=== PATIENT | male | born 1975 | race Caucasian/White ===

== ENCOUNTER 2025-04-14 08:38 | Day surgery (SDC) | payer BC, OTHER ==
[~2025-04-14 08:38] MED LIST: Clindamycin Phosphate in D5W 900 MG in Premix Bag 1 BAG IV ONE; Sodium Chloride 0.9% 10 ML Syringe FLUSH PRN; Sodium Chloride 0.9% 10 ML Syringe FLUSH SCH
[2025-04-14] MEDS ORDERED: Clindamycin Phosphate in D5W 900 MG in Premix Bag 1 BAG IV ONE (08:45)
[2025-04-14] MEDS: Lactated Ringers 1,000 ML IV SCH (09:00)
[2025-04-14] MEDS ORDERED: Ondansetron 4 MG/2 ML SDV ONE (09:34)
[2025-04-14] MEDS ORDERED: Propofol 200 MG/20 ML SDV ONE ×2 (09:34→11:57)
[2025-04-14] MEDS ORDERED: Dexamethasone 4 MG/ML 5 ML MDV ONE (09:34)
[2025-04-14] MEDS ORDERED: dexmedeTOMIDine HCl 200 MCG/2 ML SDV ONE (09:34)
[2025-04-14] MEDS ORDERED: propofoL 500 MG/50 ML 50 ML ONE (09:34)
[2025-04-14] MEDS ORDERED: Ondansetron 4 MG/2 ML SDV IVPUSH ONE (10:30)
[2025-04-14] MEDS ORDERED: fentaNYL 100 MCG/2 ML SDV ONE (11:41)
[2025-04-14] MEDS: EPINEPHrine 1 MG/ML SDV ONE (11:55)
[2025-04-14] MEDS: fentaNYL 100 MCG/2 ML SDV IVPUSH PRN (12:30)
[2025-04-14] MEDS: Acetaminophen/HYDROcodone 325-5 MG Tab PO PRN (13:45)
== END 2025-04-14 14:30 | disposition home or self-care (01) ==
LOC: JD.SDS 08:38
PROVIDERS: ATTEND Orthopaedic Surgery
DX: S83.241A Other tear of medial meniscus, current injury, right knee, initial encounter (principal); M17.11 Unilateral primary osteoarthritis, right knee; M94.261 Chondromalacia, right knee; I10 Essential (primary) hypertension; B35.1 Tinea unguium; E66.9 Obesity, unspecified; Z68.30 Body mass index [BMI] 30.0-30.9, adult; Z79.899 Other long term (current) drug therapy
CPT/HCPCS: 29881; A9270; J0169; J0665; J0690; J1100; J2405; J2704; J3010; J7120